=== PATIENT | male | born 1940 | race Caucasian/White ===

== ENCOUNTER → 2016-09-15 | Outpatient (CLI) | payer MEDICARE, OTHER ==
[~2016-09-15] MED LIST: AMLO10TA2 PO; ATOR10TA66 PO; CARV25TA PO; CELE-63 PO; ESZO2TAB30 PO; LOSA1TAB70 PO; MONT10TA24 PO; POLY119P5 PO; RABE20TA27 PO; TRAZ100T92 PO
--- OUTSIDE RECORDS SUMMARY | 2016-09-15 08:24 | XMS REPORT | Continuity of Care Document ---
Author Author [facility] Organization [facility] Address Unknown Phone Unavailable Care Team Providers Care Embosser Apprentice Name Role Phone Tammie Brown PCP [phone] Source Comments Some departments are not documenting in the electronic medical record. If you do not see the information that you expected, contact Release of Information in the Health Information Management department at [phone] for further assistance in locating additional records.[facility] Active Allergies and Adverse Reactions Allergen Noted Date Severity Reactions Comments Fiberglass 03/16/2005 Medium Allergy recorded in SMS: FIBERGLASS~Reactions: UNKNOWN Formaldehyde 01/10/2013 SHORTNESS OF BREATH Penicillins 03/16/2005 Medium Allergy recorded in SMS: Penicillin~Reactions: UNKNOWN Current Medications Prescription Sig. Disp. Refills Start End Date Status Date verapamil (ISOPTIN) 120 Take 120 mg by mouth at Active mg tablet bedtime daily. acetaminophen SR(+) Take 650 mg by mouth Active (TYLENOL) 650 mg tablet twice daily. RABEprazole DR (+) Take 20 mg by mouth Active (ACIPHEX) 20 mg tablet daily. polyethylene glycol 3350 Take 17 g by mouth daily. Active (GLYCOLAX; MIRALAX) 17 gram/dose powder montelukast (SINGULAIR) Take 10 mg by mouth at Active 10 mg tablet bedtime daily. simvastatin (ZOCOR) 20 mg Take 20 mg by mouth at Active tablet bedtime daily. eszopiclone(+) (LUNESTA) Take 1 Tab by mouth Active 2 mg tablet daily. losartan/hydrochlorothiaz Take 1 Tab by mouth Active giorgio (HYZAAR) 100/25 mg daily. tablet 1 Tab Celecoxib 50 mg cap Take 20 mg by mouth Active daily. Active Problems Problem Noted Date History of prostate cancer Overview: iPSA=5.3 ng/mL. cT1c; [place] 3+3=6. HDR Brachytherapy -- 11/03/1998 & 11/17/1998; Vidya Chou MD/ Malcolm Adams MD. Biochemical recurrence ~ 2000. Attempted, but aborted Perineal Prostatectomy -- 06/10/2001; Dr. Adams. Post-BrachyTx PSA stable. L ast Assessment & Plan: PSA reviewed & stable compared to prior results. RTC 1 yr w/ PSA. History of urethral stricture Overview: Bulbous urethral stricture Dx: 1999 Urethral Dilation -- 10/19/1999; Dr. Adams. DVIU -- 01/15/2013; Dr. Adams. L ast Assessment & Plan: PVR reviewed. No evidence of obstructive urinary sx's. Urinary urgency Last Assessment & Plan: PVR reviewed. Not a quality of life issue at this time. No interested in meds. Most Recent Encounters Date Type Specialty Providers Description 09/09/2016 Orders Only Urology Cary Yang LPN Prostate cancer (HCC) Social History Tobacco Use Types Packs/Day Years Used Date Never Smoker 0.5 6 Quit: 07/09/1966 Smokeless Tobacco: Former Chew User Alcohol Use Drinks/Week oz/Week Comments No Last Filed Vital Signs Vital Sign Reading Time Taken Blood Pressure 180/66 03/29/2016 9:55 AM CDT Pulse 74 03/29/2016 9:55 AM CDT Temperature 36.4 C (97.5 F) 01/15/2013 9:49 AM CDT Respiratory Rate 14 02/21/2011 12:57 AM CDT Height 1.829 m (6' 0.01") 03/29/2016 9:55 AM CDT Weight 104.962 kg (231 lb 6.4 03/29/2016 9:55 AM CDT oz) Body Mass Index 31.38 03/29/2016 9:55 AM CDT Oxygen Saturation 93% 01/15/2013 10:30 AM CDT Plan of Care Date Type Specialty Providers Description 03/28/2017 Appointment Urology Edmund Desai PA-C [address] [facility] [address] [place] [address] [phone] (Fax) Health Maintenance Due Date Last Done Comments Physical (Comprehensive) 1947 Exam Pertussis Vaccine 1949 Tetanus Vaccine 1955 Shingles Vaccine 1998 Prevnar/Pneumovax (#1) 2003 Influenza Vaccine 03/09/2017 Results from Last 3 Months Not on file
--- NOTE | 2016-09-17 12:54 | ECHOCARDIOGRAPHY REPORT ---
PROCEDURE PHYSICIAN: PATIENCE HOFFMANN DATE OF PROCEDURE: 09/15/2016 TWO DIMENSIONAL ECHOCARDIOGRAM REPORT PRIMARY PHYSICIAN: OTHER PHYSICIAN: REFERRING PHYSICIAN: Dr. Tammie Brown ORDERING PHYSICIAN: INDICATION FOR THE PROCEDURE: Hypertension. MEASUREMENTS DERIVED VALUES LV DIAMETER (LAX) NORMALS NORMALS Diastolic 5.4 (3.6-5.2) Eject. Fract. 60% (60%+/-6%) Systolic (2.3-3.9) Diastolic Vol. % Shortening (0.22-0.42) Systolic Vol. Aortic Root IVS THICKNESS Diastolic 1.1 (0.6-1.1) LVPW THICKNESS Diastolic 1.2 (0.6-1.1) LA DIAMETER Systolic 4.0 (2.1-3.7) FINDINGS: 1. Technical quality is good. 2. The left ventricle is normal in size with mild left ventricular hypertrophy noted diffusely. Systolic function appeared to be normal. Estimated ejection fraction is 60%. 3. The left atrium is dilated. No clot or thrombus were seen within the left atrium. 4. The right atrium and right ventricle are normal in size. No clot or thrombus were seen within the right side. 5. Mitral valve is calcified with mild mitral regurgitation noted by color Doppler flow. No mitral valve prolapse. No mitral valve stenosis. 6. Aortic valve evaluation showed thickening of the leaflet mainly in the noncoronary cusp. There is no significant aortic valve stenosis was noted. Trace aortic regurgitation noted by color Doppler flow. 7. Tricuspid valve is normal in morphology with mild tricuspid regurgitation noted by color Doppler flow. Doppler across tricuspid valve estimated pulmonary artery pressure of 21+ right atrial pressure. 8. Pulmonic valve is functioning normally. 9. No pericardial effusion. CONCLUSION: 1. Normal left ventricular size and systolic function. Estimated ejection fraction is 60%. 2. Dilated left atrium. 3. Calcification on the aortic leaflets mainly at noncoronary cusp that appeared to be immobile. Did not change compared to the study of April 2016. The valve is functioning normally with trace aortic regurgitation. No significant stenosis. 4. Mild mitral and tricuspid regurgitation. 5. Estimated pulmonary artery pressure of 30 mmHg. 6. 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 Job ID: [id number] Dictated Date: 09/17/2016 09:28:14 Fisher Trawl Line Date: 09/17/2016 12:49:28 / anjali
== END ==
LOC: CARD 08:22
PROVIDERS: ATTEND Internal Medicine Cardiovascular Disease
DX: I10 Essential (primary) hypertension (principal); E78.2 Mixed hyperlipidemia; E66.9 Obesity, unspecified; R06.02 Shortness of breath; R53.83 Other fatigue
CPT/HCPCS: 93306